=== PATIENT | male | born 1980 | race African-American/Black ===

== ENCOUNTER 2020-11-19 19:20 | Emergency (ER) | payer OTHER ==
--- NOTE | 2020-11-19 20:20 | RAD REPORT ---
EXAM DESCRIPTION: RADPedrot Pa And Lat (2 Views)11/19/2020 8:11 pm CLINICAL HISTORY: Cough COMPARISON: None FINDINGS: Mild bilateral pulmonary opacities. The heart is normal size IMPRESSION: Mild bilateral pulmonary opacities probably pneumonia
[2020-11-19] MEDS ORDERED: METHYLPREDNISOLONE 125 MG INJ ONE (21:16)
[2020-11-19] MEDS ORDERED: ACETAMINOPHEN 325 MG TABLET ONE (21:16)
[2020-11-19] MEDS ORDERED: NA CHLORIDE 0.9% 500 ML ONE (21:16)
[2020-11-19 21:54] LABS: Absolute Lymphocytes (CBC) 0.9 K/uL (0.7-4.9); Basophils % 0.3 % (0-1.3); Hematocrit 49.7 % (39.6-49.0); Lymphocytes % 11.6 % (15.3-44.8); MPV 7.7 fL (7.6-11.3); RBC Red Blood Cell Count 5.54 M/uL (4.33-5.43)
[2020-11-19 22:45] LABS: Blood Morphology Comment NOT SEEN (NOT SEEN); Platelet Estimate ADEQ
[2020-11-19 22:53] LABS: ALT/SGPT 30 U/L (12-78); AST/SGOT 37 U/L (15-37); Albumin 3.8 g/dL (3.4-5.0); Alkaline Phosphatase 35 U/L (45-117); BUN Blood Urea Nitrogen 17 mg/dL (7-18); Bicarbonate 27 mmol/L (21-32); Bilirubin Direct 0.2 mg/dL (0-0.2); Bilirubin Total 0.9 mg/dL (0.2-1.0); Ferritin 1865.5 ng/mL (26-388); Glucose Level 108 mg/dL (74-106); Potassium 3.9 mmol/L (3.5-5.1); Protein, Total 8.9 g/dL (6.4-8.2); Sodium Level 136 mmol/L (136-145); Troponin (Emerg Dept Use Only) < 0.02 ng/mL (0.0-0.045)
--- NOTE | 2020-11-19 23:47 | ER ---
Nurse's Notes [facility] Name: Ivan Tam Age: 40 yrs Sex: Male : 1980 Arrival Date: 11/19/2020 Time: 19:22 Bed 26 Private MD: Diagnosis: Pneumonia due to SARS-associated coronavirus;Dehydration;Dyspnea, unspecified Presentation: 11/19 20:28 Chief complaint: Patient states: SOB, Cough, Diarrhea, Fatigue x 9 days. Coronavirus kg screen: Client denies travel out of the [place] in the last 14 days. At this time, unable to obtain information related to travel outside the [place] Client presents with at least one sign or symptom that may indicate coronavirus-19. Standard/surgical mask placed on the client. Provider contacted for isolation considerations. Client reports previous positive COVID test result. Date of collection: November 14, 2020. Ebola Screen: Patient negative for fever greater than or equal to 101.5 degrees Fahrenheit, and additional compatible Ebola Virus Disease symptoms Patient denies exposure to infectious person. Patient denies travel to an Ebola-affected area in the 21 days before illness onset. Initial Sepsis Screen: Does the patient meet any 2 criteria? RR > 20 per min. Does the patient have a suspected source of infection? Yes: Productive cough/pneumonia No. Patient's initial sepsis screen is negative. Risk Assessment: Do you want to hurt yourself or someone else? Patient reports no desire to harm self or others. Onset of symptoms was November 10, 2020. 20:28 Method Of Arrival: Ambulatory kg 20:28 Acuity: NIA 3 kg Triage Assessment: 20:30 General: Appears in no apparent distress. Behavior is calm, cooperative, appropriate kg for age, quiet. Pain: Complains of pain in lumbar area, left low back and right low back Pain radiates to chest Pain currently is 4 out of 10 on a pain scale. at worst was 7 out of 10 on a pain scale. level that patient reports is acceptable is 3 out of 10 on a pain scale. Quality of pain is described as burning, throbbing, Pain began gradually. Respiratory: Reports shortness of breath at rest on exertion cough that is productive, non-productive, Onset: The symptoms/episode began/occurred gradually, the patient has mild shortness of breath. GI: Reports diarrhea. Historical: - Allergies: 20:30 No Known Allergies; kg - Home Meds: 20:30 Lunesta 3 mg oral tab 1 tab once daily [Active]; valsartan 80 mg oral tab 1 tab once kg daily [Active]; sertraline 100 mg oral tab 2 tabs once daily [Active]; - PMHx: 20:30 PTSD; Hypertensive disorder; kg - PSHx: 20:30 Right shoulder sx; Right elbow sx; Left wrist sx; Left forearm sx; kg - Immunization history:: Adult Immunizations not up to date, Client reports having NOT received the Covid vaccine. - Social history:: Smoking status: Patient denies any tobacco usage or history of. Patient uses alcohol, weekly. - Family history:: not pertinent. - Hospitalizations: : No recent hospitalization is reported. Screenin:35 Abuse screen: Denies threats or abuse. Denies injuries from another. Nutritional kg screening: No deficits noted. Tuberculosis screening: No symptoms or risk factors identified. Fall Risk None identified. Assessment: 21:00 General: Appears in no apparent distress. comfortable, Behavior is calm, cooperative, ld1 appropriate for age. Pain: Denies pain. Neuro: Level of Consciousness is awake, alert, obeys commands, Oriented to person, place, time, situation, Appropriate for age. 21:00 Cardiovascular: Capillary refill < 3 seconds Patient's skin is warm and dry. Rhythm is ld1 sinus rhythm. Respiratory: Airway is patent Respiratory effort is even, labored, Respiratory pattern is regular, symmetrical, Breath sounds are clear bilaterally. GI: Abdomen is flat, non-distended. : No signs and/or symptoms were reported regarding the genitourinary system. EENT: No signs and/or symptoms were reported regarding the EENT system. Derm: No signs and/or symptoms reported regarding the dermatologic system. Musculoskeletal: No signs and/or symptoms reported regarding the musculoskeletal system. 22:36 Reassessment: Patient appears in no apparent distress at this time. Patient and/or ld1 family updated on plan of care and expected duration. Pain level reassessed. Patient is alert, oriented x 3, equal unlabored respirations, skin warm/dry/pink. 23:23 Reassessment: Patient appears in no apparent distress at this time. Patient and/or ld1 family updated on plan of care and expected duration. Pain level reassessed. Patient is alert, oriented x 3, equal unlabored respirations, skin warm/dry/pink. Vital Signs: 20:28 BP 114 / 79; Pulse 96; Resp 32; Temp 99.4(O); Pulse Ox 94% ; Weight 102.06 kg (R); kg Height 74 in. (187.96 cm); Pain 4/10; 21:00 BP 120 / 81; Pulse 76; Resp 24; Pulse Ox 98% on R/A; ld1 22:36 BP 114 / 75; Pulse 70; Resp 26; Pulse Ox 97% on R/A; ld1 23:23 BP 121 / 80; Pulse 67; Resp 23; Pulse Ox 97% on R/A; ld1 20:28 Body Mass Index 28.89 (102.06 kg, 187.96 cm) kg ED Course: 19:22 Patient arrived in ED. bp1 20:11 XRAY Chest Pa And Lat (2 Views) In Process Unspecified. EDMS 20:13 Kenney Fuentes MD is Attending Physician. rn 20:30 Triage completed. kg 20:30 Arm band placed on right wrist. kg 20:35 Patient has correct armband on for positive identification. kg 20:35 No provider procedures requiring assistance completed. kg 20:52 Jackie Perez, RN is Primary Nurse. ld1 21:00 Inserted saline lock: 20 gauge in right antecubital area, using aseptic technique. ld1 Blood collected. 23:17 CT Chest For PE Angio In Process Unspecified. EDMS 23:58 IV discontinued, intact, bleeding controlled, No redness/swelling at site. ld1 Administered Medications: 20:55 Drug: NS 0.9% 500 ml Route: IV; Rate: bolus; Site: right antecubital; ld1 21:50 Follow up: Response: No adverse reaction; IV Status: Completed infusion; IV Intake: ld1 500ml 20:55 Drug: SOLU-Medrol (methylPrednisoLONE) 125 mg Route: IVP; Site: right antecubital; ld1 21:50 Follow up: Response: No adverse reaction ld1 20:55 Drug: Tylenol 650 mg Route: PO; ld1 21:50 Follow up: Response: No adverse reaction ld1 Intake: 21:50 IV: 500ml; Total: 500ml. ld1 Outcome: 23:47 Discharge ordered by . rn 23:58 Discharged to home ambulatory. ld1 23:58 Condition: stable 23:58 Discharge instructions given to patient, Instructed on discharge instructions, follow up and referral plans. medication usage, Demonstrated understanding of instructions, follow-up care, medications. 23:59 Patient left the ED. ld1 Signatures: Dispatcher [employer] EDMS Kenney Fuentes MD MD rn Paniauga, Brittany bp1 Dibbern, Lauren RN RN ld1 Trinidad Jha RN RN kg
--- NOTE | 2020-11-19 23:48 | EDPHYS ---
Physician Documentation [facility] Name: Ivan Tam Age: 40 yrs Sex: Male : 1980 Arrival Date: 11/19/2020 Time: 19:22 Bed 26 Private MD: ED Physician Kenney Fuentes HPI: 11/19 20:32 This 40 yrs old Black Male presents to ER via Ambulatory with complaints of Shortness rn Of Breath, Covid+. 20:32 The patient has shortness of breath at rest, with light activity. Onset: The rn symptoms/episode began/occurred 1 week(s) ago. Duration: The symptoms are continuous. The patient's shortness of breath is aggravated by coughing, exertion, light activity, is alleviated by nothing. Associated signs and symptoms: Pertinent positives: non-productive cough, Pertinent negatives: fever, hemoptysis, loss of consciousness. Severity of symptoms: At their worst the symptoms were mild in the emergency department the symptoms are unchanged. The patient has not experienced similar symptoms in the past. The patient has not recently seen a physician. Patient reports Covid positive, symptoms for about a week, came in tonight with his , both having cough/generalized weakness/shortness of breath. States shortness of breath is mild but worse with exertion. No chronic lung problems or medical problems.. Historical: - Allergies: 20:30 No Known Allergies; kg - Home Meds: 20:30 Lunesta 3 mg oral tab 1 tab once daily [Active]; valsartan 80 mg oral tab 1 tab once kg daily [Active]; sertraline 100 mg oral tab 2 tabs once daily [Active]; - PMHx: 20:30 PTSD; Hypertensive disorder; kg - PSHx: 20:30 Right shoulder sx; Right elbow sx; Left wrist sx; Left forearm sx; kg - Immunization history:: Adult Immunizations not up to date, Client reports having NOT received the Covid vaccine. - Social history:: Smoking status: Patient denies any tobacco usage or history of. Patient uses alcohol, weekly. - Family history:: not pertinent. - Hospitalizations: : No recent hospitalization is reported. ROS: 20:32 Constitutional: Positive chills Eyes: Negative for injury, pain, redness, and returns processor, Neck: Negative for injury, pain, and swelling, Cardiovascular: Negative for chest pain, palpitations, and edema, Respiratory: Positive for cough and shortness of breath Abdomen/GI: Positive for diarrhea : Negative for injury, bleeding, discharge, and swelling, MS/Extremity: Negative for injury and deformity, Skin: Negative for injury, rash, and discoloration, Neuro: Negative for numbness, tingling, and seizure. 20:32 All other systems are negative. Exam: 20:32 Constitutional: This is a well developed, well nourished patient who is awake, alert, rn appears weak and tachypneic Head/Face: Normocephalic, atraumatic. Eyes: Periorbital areas with no swelling, redness, or edema. ENT: No stridor, +dry mucous membranes Cardiovascular: Regular rate and rhythm. No pulse deficits. Respiratory: Mild to moderate tachypnea, no retractions. Abdomen/GI: Soft, non-tender Skin: Warm, dry MS/ Extremity: Pulses equal, no cyanosis. Neurovascular intact. Full, normal range of motion. Equal circumference. Neuro: Awake and alert, GCS 15 22:05 ECG was reviewed by the Attending Physician. rn Vital Signs: 20:28 BP 114 / 79; Pulse 96; Resp 32; Temp 99.4(O); Pulse Ox 94% ; Weight 102.06 kg (R); kg Height 74 in. (187.96 cm); Pain 4/10; 21:00 BP 120 / 81; Pulse 76; Resp 24; Pulse Ox 98% on R/A; ld1 22:36 BP 114 / 75; Pulse 70; Resp 26; Pulse Ox 97% on R/A; ld1 23:23 BP 121 / 80; Pulse 67; Resp 23; Pulse Ox 97% on R/A; ld1 20:28 Body Mass Index 28.89 (102.06 kg, 187.96 cm) kg MDM: 20:38 Patient medically screened. rn 21:01 Differential diagnosis: Bronchitis Myocardial Infarction pneumonia, Pneumothorax rn pulmonary edema, reactive airway disease, Sepsis. Data interpreted: monitoring and evaluation advisor: rate is 96 beats/min, rhythm is normal sinus rhythm, regular, with no ectopy, Interpretation: normal rate, normal rhythm, Pulse oximetry: on room air is 94 %. Interpretation: acceptable. Test interpretation: by ED physician or midlevel provider: ECG, plain radiologic studies, Chest x-ray shows mild bilateral pulmonary opacities consistent with mild Covid pneumonia. 23:46 Data reviewed: vital signs, nurses notes, lab test result(s), EKG, radiologic studies, rn CT scan, plain films, and as a result, I will discharge patient. Counseling: I had a detailed discussion with the patient and/or guardian regarding: the historical points, exam findings, and any diagnostic results supporting the discharge/admit diagnosis, lab results, radiology results, the need for outpatient follow up, to return to the emergency department if symptoms worsen or persist or if there are any questions or concerns that arise at home. Response to treatment: the patient's symptoms have markedly improved after treatment, and as a result, I will discharge patient. Special discussion: I discussed with the patient/guardian in detail that at this point there is no indication for admission to the hospital. It is understood, however, that if the symptoms persist or worsen the patient needs to return immediately for re-evaluation. ED course: Feels much better, oxygen 97%, still a little tachypneic but feels improved will DC home with return precautions and PCP follow-up.. 11/19 20:28 Order name: BMP rn 11/19 20:28 Order name: Blood Culture Adult (2) 11/19 20:28 Order name: C-Reactive Protein 11/19 20:28 Order name: CBC with Diff rn 11/19 20:28 Order name: D-Dimer; Complete Time: 22:22 11/19 20:28 Order name: Ferritin rn 11/19 19:29 Order name: XRAY Chest Pa And Lat (2 Views); Complete Time: 20:27 11/19 20:28 Order name: LFT's rn 11/19 20:28 Order name: Lactate; Complete Time: 22:33 11/19 20:28 Order name: Procalcitonin; Complete Time: 22:22 11/19 20:28 Order name: Troponin (emerg Dept Use Only) rn 11/19 20:29 Order name: Basic Metabolic Panel EDND 11/19 22:06 Order name: Manual Differential EDND 11/19 22:35 Order name: CT Chest For PE Angio rn 11/19 20:28 Order name: EKG; Complete Time: 20:29 11/19 20:28 Order name: Cardiac monitoring; Complete Time: 20:52 rn 11/19 20:28 Order name: Droplet/Contact Precautions; Complete Time: rn 11/19 20:28 Order name: EKG - Nurse/Tech; Complete Time: rn 11/19 20:28 Order name: IV Start; Complete Time: : rn 11/19 20:28 Order name: Labs collected and sent; Complete Time: rn 11/19 20:28 Order name: O2 Per Protocol; Complete Time: rn 11/19 20:28 Order name: O2 Sat Monitoring; Complete Time: : rn EC:05 Rate is 71 beats/min. Rhythm is regular. QRS Rumely is Normal. PA interval is normal. QRS rn interval is normal. QT interval is normal. No Q waves. T waves are Normal. No ST changes noted. Clinical impression: Normal ECG. Interpreted by me. Reviewed by me. Administered Medications: 20:55 Drug: NS 0.9% 500 ml Route: IV; Rate: bolus; Site: right antecubital; ld1 21:50 Follow up: Response: No adverse reaction; IV Status: Completed infusion; IV Intake: ld1 500ml 20:55 Drug: SOLU-Medrol (methylPrednisoLONE) 125 mg Route: IVP; Site: right antecubital; ld1 21:50 Follow up: Response: No adverse reaction ld1 20:55 Drug: Tylenol 650 mg Route: PO; ld1 21:50 Follow up: Response: No adverse reaction ld1 Disposition Summary: 11/19/20 23:47 Discharge Ordered Location: Home rn Problem: new rn Symptoms: have improved rn Condition: Stable rn Diagnosis - Pneumonia due to SARS-associated coronavirus rn - Dehydration rn - Dyspnea, unspecified rn Followup: rn - With: Private Physician - When: As needed - Reason: Recheck today's complaints, Re-evaluation by your physician Discharge Instructions: - Discharge Summary Sheet rn - Dehydration, Adult rn - COVID-19 rn Forms: - Medication Reconciliation Form rn - Thank You Letter rn - Antibiotic graduate internship - Prescription Opioid Use rn Prescriptions: - albuterol sulfate 90 mcg/actuation Inhalation HFA aerosol inhaler - inhale 2 puff by INHALATION route every 4 hours; 1 Inhaler; Refills: 0, Product rn Selection Permitted - ivermectin 3 mg Oral tablet - take 4 tablet by ORAL route once daily for 5 days; 20 tablet; Refills: 0, rn Product Selection Permitted - Prednisone 20 mg Oral Tablet - take 1 tablet by ORAL route as directed for 14 days Take 2 tablets by mouth rn once daily for 7 days, followed by 1 tablet by mouth once daily for 7 days.; 21 tablet; Refills: 0, Product Selection Permitted Signatures: Dispatcher [employer] Kenney Owen MD MD rn Dibbern, Lauren RN RN ld1 Trinidad Jha RN RN kg
[2020-11-20 00:33] VITALS: TEMP 99.4
[2020-11-20 00:38] VITALS: O2SAT 97
[2020-11-20 00:40] VITALS: BP 121/80
--- NOTE | 2020-11-20 11:55 | RAD REPORT ---
EXAM DESCRIPTION: CT - Chest For Pe Angio - 11/20/2020 6:32 am CLINICAL HISTORY: The patient is 40 years old and is Male; DYSPNEA TECHNIQUE: Axial computed tomographic angiography images of the chest with intravenous contrast. S agittal and coronal reformatted images were created and reviewed. This CT exam was performed using one or more of the following dose reduction techniques: automated exposure control, adjustment of t he mA and/or kV according to patient size, and/or use of iterative reconstruction technique. MIP reconstructed images were created and reviewed. COMPARISON: No relevant prior studies available. FINDINGS: ARTIFACTS: The exam is suboptimal secondary to motion artifact. PULMONARY ARTERIES: There are no obvious filling defects identified within the pulmonary arterie s to suggest pulmonary embolism. AORTA: No acute findings. No thoracic aortic aneurysm. LUNGS: Groundglass infiltrates throughout the lungs most prominent in the lung bases is noted wi th also areas of atelectasis. No mass. PLEURAL SPACE: Unremarkable. No significant effusion. No pneumothorax. HEART: Unremarkable. No cardiomegaly. No significant pericardial effusion. No evidence of RV dysfunction. BONES/JOINTS: No acute fracture. No dislocation. SOFT TISSUES: Unremarkable. LYMPH NODES: Unremarkable. No enlarged lymph nodes. IMPRESSION: 1. No evidence of pulmonary embolism. 2. Commonly reported imaging features of (COVID-19 or viral) pneumonia are present. Other processes such as influenza pneumonia and organizing pneumonia, as can be seen with drug toxicity and connecti ve tissue disease, can cause a similar imaging pattern. [id number] Electronically signed by: Neris Gallo MD 11/19/2020 11:37 PM CDT Due to temporary technical issues with the PACS/Fluency reporting system, reports are being signed by the in house radiologist without review as a courtesy to ensure prompt reporting. The interpreting r adiologist is fully responsible for the content of the report.
== END 2020-11-19 23:59 | disposition home or self-care (01) ==
LOC: ER 19:20
DX: U07.1 COVID-19 (principal); J12.82 Pneumonia due to coronavirus disease 2019; E86.0 Dehydration; I10 Essential (primary) hypertension
CPT/HCPCS: 96361; 93005; 87040 ×2; 85025; 80048; 36415; 85379; 80076; 83605; 84484; 82728; 84145; 86140; 71275; 71046; 96374; 99284; Q9967; J7040; J2930